=== PATIENT | male | born 1945 | race Caucasian/White ===

== ENCOUNTER → 2017-06-23 | Outpatient (CLI) | payer MEDICARE, OTHER ==
[~2017-06-23] MED LIST: ALLO100T PO; ASCO25TA PO; ASPI325T24 PO; ATEN50TA2 PO; BUME2TAB PO; CALC600T60 PO; CLON-412 PO; FISH1000 PO; FLAXOIL2 PO; GLUCPOW24 PO; HYDR-3713 PO; LISI10TA4 PO; MULTTAB22 PO; NITR4TASL SL; NORV5TAB PO; PLAV1TAB2 PO; PROTPAK PO; PYRI100T2 PO; SAW500CA9 PO; SELE125T PO; ST J300C15 PO; VITA100T20 PO; VITA400C35 PO; ZETI10TA30 PO; ZYRT10CA PO; [UNRECOGNIZED DRUG - CODE] PO; [UNRECOGNIZED DRUG - CODE] PO; [UNRECOGNIZED DRUG - CODE] PO; [UNRECOGNIZED DRUG - CODE] PO
--- NOTE | 2017-06-23 14:46 | REP ---
Chest two views HISTORY: Hypertension Comparison: 03/21/2009 The lungs are clear. The heart is normal in size. The pulmonary vasculature is normal in appearance. Degenerative changes present in the the thoracic spine. IMPRESSION: No acute disease. Signed by Tony Moser MD 06/23/2017 02:37 P
[2017-06-23 15:04] LABS: ANION GAP 10 MEQ/L (8-16); BLOOD UREA NITROGEN 28 MG/DL (7-18); CALCIUM LEVEL 8.9 MG/DL (8.8-10.2); CARBON DIOXIDE LEVEL 28 MEQ/L (21-32); CHLORIDE LEVEL 104 MEQ/L (98-107); CREATININE FOR GFR 1.11 MG/DL (0.70-1.30); GLOMERULAR FILTRATION RATE > 60.0 (>42); GLUCOSE, FASTING 99 MG/DL (83-110); POTASSIUM SERUM 4.4 MEQ/L (3.5-5.1); SODIUM LEVEL 142 MEQ/L (136-145)
--- NOTE | 2017-06-23 16:54 | ECGEPIP ---
Stationary ECG Study [facility] Test Date: 2017-06-23 Pat Name: LORI BOSE Department: Room: - Gender: M Criminalist: : [id number] Requested By: JEAN Curtis Order Number: [id number] Reading MD: Anatoly Berger Measurements Intervals [place] Rate: 58 P: 55 NC: 223 QRS: -1 QRSD: 88 T: 31 QT: 412 QTc: 406 Interpretive Statements Sinus bradycardia with isolated PAC. LA conduction disturbance. First-degree AV block Slow precordial R-wave progression; body habitus versus pulmonary disease. Rule out prior septal injury. No prior tracing for comparison. Clinical correlation advised Electronically Signed On 06-23-2017 16:54:24 EDT by Anatoly Berger
== END ==
LOC: M LAB 13:36
PROVIDERS: ATTEND Ophthalmology
DX: I10 Essential (primary) hypertension (principal)

== ENCOUNTER 2017-07-23 06:06 | Day surgery (SDC) | payer MEDICARE, OTHER ==
[~2017-07-23] VITALS: Ht 165.1 cm; Wt 90.7 kg
[2017-07-23] MEDS ORDERED: LR 1,000 ML IV SCH (06:15)
[2017-07-23] MEDS ORDERED: TROPICAMIDE 1% OPHTH SOLN 2ML As Ordered ONE (06:16)
[2017-07-23] MEDS ORDERED: OFLOXACIN 0.3 % (OCUFLOX) OPTH SOL 5ML As Ordered ONE (06:16)
[2017-07-23] MEDS ORDERED: PHENYLEPHRINE 2.5% OPHTH SOL 2ML As Ordered ONE (06:16)
[2017-07-23] MEDS ORDERED: POVIDONE-IODINE 5% OPHTH PREP SOL 30ML As Ordered ONE (06:45)
[2017-07-23] MEDS ORDERED: ACETYLCHOLINE OPHTH SOLN 1% 2ML (MIOCHOL-E) As Ordered ONE (06:45)
[2017-07-23] MEDS ORDERED: BALANCED SALT IRRIGATION SOLUTION 500ML BAG (FOR OR EYE MACHINE) As Ordered ONE (06:46)
[2017-07-23] MEDS ORDERED: LIDOCAINE 0.75%/EPINEPHRINE 0.025% IN BSS 1ML SYR INTRACAMERAL (OR ONLY) As Ordered ONE (06:46)
[2017-07-23] MEDS ORDERED: CEFUROXIME 1MG/0.1ML INTRACAMERAL INJ As Ordered ONE (06:46)
[2017-07-23] MEDS ORDERED: DUOVISC (0.50ML VISCOAT/0.55ML PROVISC) OPHTH KIT As Ordered ONE (06:47)
[2017-07-23] MEDS ORDERED: PROPARACAINE 0.5% OPHTH SOL 15ML OD ONE (07:00)
[2017-07-23] MEDS ORDERED: TROPICAMIDE 1% OPHTH SOLN 2ML OD ONE (07:00)
[2017-07-23] MEDS ORDERED: PHENYLEPHRINE 2.5% OPHTH SOL 2ML OD ONE (07:00)
[2017-07-23] MEDS ORDERED: OFLOXACIN 0.3 % (OCUFLOX) OPTH SOL 5ML OD ONE (07:00)
[2017-07-23] MEDS ORDERED: MIDAZOLAM INJ 2 MG/2 ML VIAL (J2250) As Ordered ONE (07:13)
[2017-07-23] MEDS ORDERED: fentaNYL 100 MCG/2 ML INJECTION (J3010) As Ordered ONE (07:16)
[2017-07-23 08:15] VITALS: BP 147/77
--- NOTE | 2017-07-24 15:23 | RO ---
DATE OF PROCEDURE: 07/23/2017 PREOPERATIVE DIAGNOSIS: Visually significant nuclear sclerotic cataract right eye. POSTOPERATIVE DIAGNOSIS: Visually significant nuclear sclerotic cataract right eye. PROCEDURE: Cataract extraction with use of phacoemulsification, and placement of intraocular lens, 24.0 D, right eye. SURGEON: Uri Albrecht DO PLATE EMBOSSER: ANESTHESIA: Local with monitored anesthesia care (MAC). COMPLICATIONS: None. POSTOPERATIVE CONDITION: Stable. INDICATION FOR SURGERY: Blurred vision right eye affecting patient's activities of daily living. DESCRIPTION OF PROCEDURE: The patient was seen in the preoperative area and properly identified. The correct operative eye was identified and marked. Attention was turned to that eye. The patient received topical antibiotics in the preoperative area. The patient then received topical dilating drops consisting of Tropicamide and Phenylephrine. The patient was then transferred to the operating room. The correct side was re-identified. The patient received topical anesthetics and antibiotics on the surface of the eye. The eye was prepped and draped in a sterile fashion. The upper and lower eyelids were isolated with Tegaderm tape, and the lids were held open with an adjustable speculum. Using a sideport blade, a paracentesis incision was made. Intraocular preservative-free lidocaine was then injected into the anterior chamber. Viscoelastic was then injected into the anterior chamber through the paracentesis. Using a 2.6 mm sharp-tipped keratome, the anterior chamber was entered via a temporal clear corneal incision. A continuous curvilinear capsulorrhexis was created with the aid of a 26g cystotome and utrata forceps. Hydrodissection was performed with balanced salt solution (BSS) on a blunt cannula until the nucleus was freely mobile. The crystalline lens was phacoemulsified and aspirated. Additional cohesive viscoelastic was placed into the capsular bag to deepen it. A 24.0 lens D was placed into the capsular bag and confirmed by visualizing the continuous curvilinear capsulorrhexis. Additional irrigation and aspiration was used to remove cortical material and remaining viscoelastic. The clear corneal incision was hydrated with BSS on a blunt cannula. The lens was well positioned. The incisions were then tested for leaks and found to be negative. The eye was then palpated for appropriate pressure and adjusted accordingly with BSS. The eyelid speculum was carefully removed. A shield was placed over the eye. The patient tolerated the procedure well and was discharged to the recovery unit in a stable condition. [facility]ENTER[facility]ank[facility]
== END 2017-07-23 08:40 | disposition home or self-care (01) ==
LOC: M SDC 06:06
PROVIDERS: ATTEND Ophthalmology
DX: H25.11 Age-related nuclear cataract, right eye (principal); I10 Essential (primary) hypertension; I25.10 Atherosclerotic heart disease of native coronary artery without angina pectoris; I25.2 Old myocardial infarction; M12.9 Arthropathy, unspecified; E78.5 Hyperlipidemia, unspecified; E11.9 Type 2 diabetes mellitus without complications; L40.9 Psoriasis, unspecified; Z88.6 Allergy status to analgesic agent; Z88.8 Allergy status to other drugs, medicaments and biological substances; Z79.899 Other long term (current) drug therapy; Z87.891 Personal history of nicotine dependence; Z95.5 Presence of coronary angioplasty implant and graft
CPT/HCPCS: 66984; J2250; J3010; V2632

== ENCOUNTER → 2018-03-25 | Outpatient (REF) | payer MEDICARE, OTHER ==
[2018-03-25 14:54] LABS: URIC ACID 7.4 MG/DL (3.5-7.2)
[2018-03-25 14:54] LABS: GAMMA GLUTAMYLTRANSPEPTIDASE 39 U/L (15-85)
== END ==
LOC: M LAB REF 14:21
DX: M10.9 Gout, unspecified (principal); R79.89 Other specified abnormal findings of blood chemistry
CPT/HCPCS: 82977

== ENCOUNTER 2018-04-15 06:38 | Day surgery (SDC) | payer MEDICARE, OTHER ==
[2018-04-15 07:28] LABS: BEDSIDE GLUCOSE 136 MG/DL (83-110)
[2018-04-15] MEDS: PHENYLEPHRINE 2.5% OPHTH SOL 2ML OS (07:29)
[2018-04-15] MEDS: PROPARACAINE 0.5% OPHTH SOL 15ML OS (07:29)
[2018-04-15] MEDS: TROPICAMIDE 1% OPHTH SOLN 2ML OS (07:29)
[2018-04-15] MEDS: OFLOXACIN 0.3 % (OCUFLOX) OPTH SOL 5ML OS (07:29)
[2018-04-15] MEDS ORDERED: fentaNYL 100 MCG/2 ML INJECTION (J3010) As Ordered (07:41)
[2018-04-15] MEDS ORDERED: MIDAZOLAM INJ 2 MG/2 ML VIAL (J2250) As Ordered (07:41)
[2018-04-15] MEDS: DUOVISC (0.50ML VISCOAT/0.55ML PROVISC) OPHTH KIT As Ordered (08:20)
[2018-04-15] MEDS: LIDOCAINE 0.75%/EPINEPHRINE 0.025% IN BSS 1ML SYR INTRACAMERAL (OR ONLY) As Ordered (08:20)
[2018-04-15] MEDS: BALANCED SALT IRRIGATION SOLUTION 500ML BAG (FOR OR EYE MACHINE) As Ordered (08:20)
[2018-04-15] MEDS: CEFUROXIME 1MG/0.1ML INTRACAMERAL INJ As Ordered (08:20)
[2018-04-15] MEDS: POVIDONE-IODINE 5% OPHTH PREP SOL 30ML As Ordered (08:20)
== END 2018-04-15 09:01 | disposition home or self-care (01) ==
LOC: M SDC 06:38
DX: H25.12 Age-related nuclear cataract, left eye (principal); I10 Essential (primary) hypertension; E11.9 Type 2 diabetes mellitus without complications; I25.10 Atherosclerotic heart disease of native coronary artery without angina pectoris; Z98.61 Coronary angioplasty status; Z79.82 Long term (current) use of aspirin; Z79.02 Long term (current) use of antithrombotics/antiplatelets; Z79.899 Other long term (current) drug therapy; Z79.84 Long term (current) use of oral hypoglycemic drugs; Z87.891 Personal history of nicotine dependence; Z88.8 Allergy status to other drugs, medicaments and biological substances
CPT/HCPCS: 66984

== ENCOUNTER → 2021-05-01 | Outpatient (REF) | payer MEDICARE, OTHER ==
[~2021-05-01] MED LIST changes: -ASCO25TA PO; +ASPI-255 PO; -ASPI325T24 PO; +ASPI81TA26 PO; -BUME2TAB PO; +BUME2TAB3 PO; +LISI10TA22 PO; -LISI10TA4 PO; +METF500T13 PO; -PYRI100T2 PO; -VITA100T20 PO; +VITA100T51 PO; +VITA100T82 PO; +VITA250T20 PO; +ZETI10TA16 PO; -ZETI10TA30 PO
[2021-05-01 16:56] LABS: INR 0.92; PROTHROMBIN TIME 12.5 SECONDS (12.5-14.3)
== END ==
LOC: M LAB REF 16:12
PROVIDERS: ATTEND Family Medicine
DX: Z01.818 Encounter for other preprocedural examination (principal); M25.561 Pain in right knee; Z79.01 Long term (current) use of anticoagulants

== ENCOUNTER → 2021-05-01 | Outpatient (CLI) | payer OTHER ==
--- NOTE | 2021-05-01 16:18 | REP ---
INDICATION: HTN, PREOP TESTING. COMPARISON: 06/23/2017 TECHNIQUE: PA and lateral views FINDINGS: The superior mediastinal structures are midline. The cardiac silhouette is unremarkable in size, shape, and position. The diaphragmatic surfaces of the lungs are regular, and the costophrenic angles are clear. The pulmonary daugherty are clear. The imaged osseous structures are intact. IMPRESSION: There is no acute cardiopulmonary disease. Stable chest <Electronically signed by Duy Augustin > 05/01/21 [id number]
== END ==
LOC: M WUC 11:52
PROVIDERS: ATTEND Orthopaedic Surgery
DX: Z01.818 Encounter for other preprocedural examination (principal); I10 Essential (primary) hypertension; M17.11 Unilateral primary osteoarthritis, right knee; Z79.899 Other long term (current) drug therapy

== ENCOUNTER → 2022-04-03 | Outpatient (REF) | payer MEDICARE, OTHER | LOC: M LAB REF 16:26 | PROVIDERS: ATTEND Registered Nurse | DX: R30.0 Dysuria (principal) ==

== ENCOUNTER → 2022-05-13 | Outpatient (CLI) | payer MEDICARE, OTHER | LOC: M RAD 13:41 | PROVIDERS: ATTEND Family Medicine | DX: R10.32 Left lower quadrant pain (principal) ==

== ENCOUNTER → 2022-06-04 | Outpatient (CLI) | payer MEDICARE, OTHER | LOC: M WUC 12:55 | PROVIDERS: ATTEND Family Medicine | DX: Z01.818 Encounter for other preprocedural examination (principal) ==

== ENCOUNTER → 2022-09-12 | Outpatient (CLI) | payer MEDICARE, OTHER ==
[~2022-09-12] MED LIST changes: +E-Z-GAS II EFFERVESCENT PACKET (SODIUM BICARB./CITRIC ACID/SIMETHICONE) As Ordered ONE; +E-Z-HD 98% w/w 340GM SUSP BTL As Ordered ONE; +E-Z-PAQUE 96% w/w SUSP 176GM BTL As Ordered ONE
== END ==
LOC: M RAD 08:28
PROVIDERS: ATTEND Family Medicine
DX: R11.10 Vomiting, unspecified (principal); K21.9 Gastro-esophageal reflux disease without esophagitis

== ENCOUNTER → 2022-12-24 | Outpatient (CLI) | payer MEDICARE, OTHER ==
[~2022-12-24] MED LIST changes: +CLOP75TA99 PO; -E-Z-GAS II EFFERVESCENT PACKET (SODIUM BICARB./CITRIC ACID/SIMETHICONE) As Ordered ONE; -E-Z-HD 98% w/w 340GM SUSP BTL As Ordered ONE; -E-Z-PAQUE 96% w/w SUSP 176GM BTL As Ordered ONE; -PLAV1TAB2 PO; +[UNRECOGNIZED DRUG - CODE] PO; -[UNRECOGNIZED DRUG - CODE] PO
== END ==
LOC: M RAD 08:54
PROVIDERS: ATTEND Internal Medicine Cardiovascular Disease
DX: I25.10 Atherosclerotic heart disease of native coronary artery without angina pectoris (principal); R09.89 Other specified symptoms and signs involving the circulatory and respiratory systems

== ENCOUNTER → 2023-09-30 | Outpatient (REF) | payer MEDICARE, OTHER ==
[~2023-09-30] MED LIST changes: +EZET10TA58 PO; -ZETI10TA16 PO
== END ==
LOC: M LAB REF 12:31
PROVIDERS: ATTEND Podiatrist
DX: L03.031 Cellulitis of right toe (principal)

== ENCOUNTER → 2023-10-20 | Outpatient (CLI) | payer OTHER | LOC: M RAD 10:40 | PROVIDERS: ATTEND Internal Medicine Cardiovascular Disease | DX: E11.51 Type 2 diabetes mellitus with diabetic peripheral angiopathy without gangrene (principal); I25.10 Atherosclerotic heart disease of native coronary artery without angina pectoris; E78.5 Hyperlipidemia, unspecified; I10 Essential (primary) hypertension; I73.9 Peripheral vascular disease, unspecified ==

== ENCOUNTER → 2024-08-25 | Outpatient (CLI) | payer OTHER | LOC: M WUC 11:45 | PROVIDERS: ATTEND Family Medicine | DX: R05.9 Cough, unspecified (principal) ==

== ENCOUNTER 2024-11-03 06:51 | Day surgery (SDC) | payer MEDICARE, OTHER ==
[~2024-11-03] VITALS: Ht 162.6 cm; Wt 89.4 kg
[~2024-11-03 06:51] MED LIST changes: +BISO10TA13 PO; +CIDA500T2 PO; +CLON0.1D3 PO; +GNP1000C11 PO; +GNP400TA10 PO; +OMEG10002 PO; +PANT40TA29 PO; +SAW450CA5 PO; +SELE200T10 PO; +ST J300C2 PO; +VITA-259 PO
[2024-11-03] MEDS ORDERED: propofoL 200 MG/20 ML VIAL As Ordered ONE (08:01)
[2024-11-03 08:50] VITALS: BP 117/63; O2SAT 94
== END 2024-11-03 09:02 | disposition home or self-care (01) ==
LOC: M OPP 06:51
PROVIDERS: ATTEND Surgery
DX: Z86.0100 Personal history of colon polyps, unspecified (principal); F10.10 Alcohol abuse, uncomplicated; Z87.891 Personal history of nicotine dependence; I10 Essential (primary) hypertension; E11.9 Type 2 diabetes mellitus without complications; I25.2 Old myocardial infarction; Z88.8 Allergy status to other drugs, medicaments and biological substances; Z79.84 Long term (current) use of oral hypoglycemic drugs; Z79.899 Other long term (current) drug therapy

== ENCOUNTER → 2025-10-31 | Outpatient (CLI) | payer MEDICARE, OTHER ==
[~2025-10-31] MED LIST changes: -ST J300C2 PO; +ST.300CA PO
== END ==
LOC: M WUC 13:06
PROVIDERS: ATTEND Physician Assistant
DX: E11.621 Type 2 diabetes mellitus with foot ulcer (principal)